=== PATIENT | female | born 1985 | race American Indian/Alaskan Native ===

== ENCOUNTER 2022-03-18 13:37 | Emergency (ER) | payer SELFPAY ==
[2022-03-18 14:06] VITALS: BP 101/61
== END 2022-03-18 19:55 | disposition left against medical advice (07) ==
LOC: ED 13:37
DX: Z00.00 Encounter for general adult medical examination without abnormal findings (principal); Z53.21 Procedure and treatment not carried out due to patient leaving prior to being seen by health care provider